=== PATIENT | male | born 2000 | race Caucasian/White ===

== ENCOUNTER → 2023-08-27 17:37 | Outpatient (CLI) | payer BC, SELFPAY ==
--- NOTE | 2023-08-27 17:39 | DI.RAD.S_ITS ---
PROCEDURE: XR RIBS LT MIN 3V W CXR1V INDICATIONS: bony mass post/lat 7-8th rib growth v healed fx TECHNIQUE: 2 views of the ribs were acquired, along with a single view chest. COMPARISON: None. FINDINGS: Surgical changes and devices: None. Bones and chest wall: There is a nondisplaced fracture with evidence of healing of the 10th posterior rib. Lungs and pleura: No pneumothorax identified. No dense airspace disease. Mediastinum: Normal heart size. IMPRESSION: Healing left 10th rib fracture. Consider clinical follow-up and further advanced imaging with ultrasound or CT if there is other concern for mass. Dictated by: Ivan Grady M.D. on 08/27/2023 at 18:09 Approved by: Ivan Grady M.D. on 08/27/2023 at 18:11
== END ==
PROVIDERS: PCP Family Medicine; Referring Provider Student in an Organized Health Care Education/Training Program; Visit Provider Student in an Organized Health Care Education/Training Program
DX: S22.32XD Fracture of one rib, left side, subsequent encounter for fracture with routine healing (principal); Q79.9 Congenital malformation of musculoskeletal system, unspecified; R07.81 Pleurodynia
CPT/HCPCS: 71101